=== PATIENT | male | born 1970 | race Caucasian/White ===

== ENCOUNTER 2023-01-02 08:58 | Emergency (ER) | payer OTHER, SELFPAY ==
[2023-01-02 09:02] VITALS: BP 148/81; PULSE 74; RESP 15; TEMP 36.7; O2SAT 97; BMI 28.1
--- NOTE | 2023-01-02 12:16 | DI.RAD.S_ITS ---
PROCEDURE: XR THORACIC SPINE 3V INDICATIONS: Fall/injury TECHNIQUE: 3 views of the thoracic spine were acquired. COMPARISON: None. FINDINGS: Bones: Mild degenerative changes are present. Partially seen cervical degenerative changes also present. No traumatic malalignment. Vertebral body heights are well maintained. Cervical thoracic junction is not well seen, even on swimmer's view. Soft tissues: No paravertebral stripe thickening. IMPRESSION: No acute radiographic abnormality. If there is high concern for occult injury, consider repeat radiography or cross-sectional imaging. Dictated by: Fabiano Wang M.D. on 01/02/2023 at 12:51 Approved by: Fabiano Wang M.D. on 01/02/2023 at 12:53
--- NOTE | 2023-01-02 12:17 | ED_ITS ---
HPI - Fall General Chief Complaint: Fall Stated Complaint: slipped and landed on back hit head headache @work Time Seen by Provider: 01/02/23 10:06 Source: patient Mode of arrival: Ambulatory History of Present Illness HPI Narrative: Patient here for complaints of head pain and mid thoracic back pain. 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 He was wearing a helmet. He slipped on a ramp walking down and fell onto his back and the helmet hit his head and fell off, his head did not hit the ground. Patient had a ground level fall. Is not on any blood thinners. Has had headache and a little dizziness since the fall. No vomiting. Had a little blurry vision. Patient does have history chronic lower back pain. No numbness tingling or weakness to the arms legs hands or feet. Patient in no distress. Patient takes ibuprofen regularly for chronic back pain. This is not new. Related Data Allergies Allergy/AdvReac Type Severity Reaction Status Date / Time doxycycline Allergy Verified 01/02/23 09:08 naproxen [From Naprosyn] Allergy Verified 01/02/23 09:08 Review of Systems Review of Systems Narrative: GENERAL: negative chills, fatigue, malaise, fever, sweats. HEENT: negative sinus pain, ear pain, sore throat RESPIRATORY: negative dyspnea, cough CARDIOVASCULAR: negative chest pain, palpitations GASTROINTESTINAL: negative nausea, vomiting, abdominal pain : negative dysuria, frequency, hematuria MUSCULOSKELETAL: Pause muscle or bony pain SKIN: negative rash, skin lesions, negative skin injury NEUROLOGIC: negative weakness, numbness, positive headache/blurry vision/dizzy ROS Unobtainable: All systems reviewed & are unremarkable except as noted in HPI and below Patient History Social History Smoking Status: Unknown if ever smoked Smoking Status: Unknown if ever smoked alcohol intake frequency: holidays/special occasions only Substance Use Type: does not use Exam Narrative Exam Narrative: GENERAL: in no distress, not toxic not dyspneic HEAD: Normocephalic. There is mild tenderness to the mid occiput scalp. No crepitus or step-off. No blood on scalp. EYES: Pupils equal round PERRLA ENT: Mucous membranes moist. NECK: Trachea midline. No midline tenderness or step-off CARDIOVASCULAR: Regular rate and rhythm without murmurs RESPIRATORY: Clear to auscultation. Breath sounds equal bilaterally. No wheezes, rales, or rhonchi. GASTROINTESTINAL: Abdomen soft, non-tender EXTREMITIES: No gross deformities. BACK: No flank tenderness. There is midline tenderness to the midthoracic spine but no step-off. Able to lean forward and back and do side bends without difficulty. No midline tenderness or step-off of the lumbar spine. NEURO: AOx4. 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 Steady self gait in room. No ataxia SKIN: Warm and dry PSYCH: Not anxious, is cooperative Initial Vital Signs Initial Vital Signs: Vital Signs Temperature 98.0 F 01/02/23 09:02 Pulse Rate 74 01/02/23 09:02 Respiratory Rate 15 01/02/23 09:02 Blood Pressure 148/81 H 01/02/23 09:02 Pulse Oximetry 97 01/02/23 09:02 Oxygen Delivery Method Room Air 01/02/23 09:02 Course Orders Ordered: Discontinued Medications Aspirin (Aspirin 81 Mg Chew Tab) 324 mg PO NOW ONE Stop: 01/02/23 09:16 Last Admin: 01/02/23 10:10 Dose: Not Given Documented By: АННА Ibuprofen (Ibuprofen 400 Mg Tablet) 800 mg PO NOW ONE Stop: 01/02/23 12:17 Last Admin: 01/02/23 12:39 Dose: Not Given Documented By: JERI Vital Signs Vital signs: Vital Signs - 8 hr 01/02/23 09:02 Temperature 98.0 F Pulse Rate 74 Respiratory Rate 15 Blood Pressure 148/81 H Pulse Oximetry 97 Oxygen Delivery Method Room Air MDM - Fall Imaging Data X-ray thoracic spine: Radiologist's Impression: PROCEDURE:? XR THORACIC SPINE 3V ? INDICATIONS:? Fall/injury ? TECHNIQUE:? 3 views of the thoracic spine were acquired.? ? COMPARISON:? None. ? FINDINGS:? ? Bones:? Mild degenerative changes are present.? Partially seen cervical degenerative changes also present.? No traumatic malalignment.? Vertebral body heights are well maintained.? Cervical thoracic junction is not well seen, even on swimmer's view. ? Soft tissues:? No paravertebral stripe thickening.? ? ? IMPRESSION:? No acute radiographic abnormality. If there is high concern for occult injury, consider repeat radiography or cross-sectional imaging. ? Dictated by: Fabiano Wang M.D. on 01/02/2023 at 12:51 ? ? Approved by: Fabiano Wang M.D. on 01/02/2023 at 12:53 ? [facility] Narrative Medical decision making narrative: Patient here for complaints of head pain and mid thoracic back pain. 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 He was wearing a helmet. He slipped on a ramp walking down and fell onto his back and the helmet hit his head and fell off, his head did not hit the ground. Patient had a ground level fall. Is not on any blood thinners. Has had headache and a little dizziness since the fall. No vomiting. Had a little blurry vision. Patient does have history chronic lower back pain. No numbness tingling or weakness to the arms legs hands or feet. Patient in no distress. Patient takes ibuprofen regularly for chronic back pain. This is not new. After history and exam x-ray thoracic spine/ibuprofen ordered [facility] CC: Fall/injury/headache/back pain Complicating co-morbidities: Chronic back pain Data collected from: Patient Medical records reviewed: Patient not seen here in the past or recently for this complaint Differential considered: Includes but not limited to concussion/head injury/scalp contusion/intracranial bleed/thoracic contusion thoracic fracture Exam documented above, pertinent findings include: Tenderness to occipital scalp and midthoracic spine Imaging studies independently reviewed: X-ray thoracic spine no acute process Treatments: Ibuprofen Re-evaluations: Reviewed results with patient. Pain is controlled. Return precautions reviewed with him. Work compensation forms completed. Not toxic at discharge. Return precautions reviewed with him. He desires discharge home. Discussion: Appropriate for discharge home. No CT imaging of the head indicated. No neuro deficits. Patient not on any blood thinners. No loss of consciousness. No altered mental status. Pain is controlled. Return precautions reviewed with him. Workmen's compensation forms completed. Patient uses a different L and I form. Not toxic at discharge Diagnosis: Scalp contusion/back contusion Discharge Plan Departure Patient Disposition: Home Clinical Impression: Contusion of scalp, Contusion of mid back Instructions: DI for Concussion, DI for Contusion, DI for Closed Head Injury, DI for Thoracic Back Pain Activity Restrictions/Additional Instructions: See family doctor for re-evaluation of your injuries. Work note for today has been provided. May continue home ibuprofen. Return if worse if any questions or concerns. Call provided primary care referral phone number to establish family doctor. Call [phone] Referrals: Miscellaneous,Doctor, MD [Primary Care Provider] - Stand Alone Forms: Patient Portal/API, Work Release Note
[2023-01-02 13:27] VITALS: BP 179/97; PULSE 69; O2SAT 94
== END 2023-01-02 13:28 | disposition home or self-care (01) ==
PROVIDERS: Emergency Provider Emergency Medicine
DX: S00.03XA Contusion of scalp, initial encounter (principal); S20.229A Contusion of unspecified back wall of thorax, initial encounter; W01.0XXA Fall on same level from slipping, tripping and stumbling without subsequent striking against object, initial encounter
CPT/HCPCS: 72072; 99283